=== PATIENT | male | born 1970 | race Caucasian/White ===

== ENCOUNTER 2024-08-01 08:10 | Emergency (ER) | payer BC, SELFPAY ==
[2024-08-01 08:16] VITALS: BP 137/87
--- NOTE | 2024-08-01 08:57 | ED.GENMED ---
History of Present Illness
<Linda Valladares PA-C - Last Filed: 08/01/24 10:42>
General
Chief Complaint: Swelling
Source: patient
Exam Limitations: none
Time Seen by Provider: 08/01/24 08:24
Nursing documentation reviewed up to this point in time: agreed with
History of Present Illness
History of Present Illness:
pt is a 54 y/o M with no sig pmh
1 week posterior prox calf thuy and knee pain
says he works in [employer] a lot
had some pain in his R knee and behind the knee 1 week ago but doesn't recall any injuries
he says he R knee 'blew up' and was pretty swollen and painful, and he had increasing pain in the back of his calf
so last week 5 days ago he went to his PCP who ordered outpatient US due to the entire R calf and into his foot/ankle being swollen
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
recommended MRI
pt has not had this done or ortho eval
he has been taking motrin for pain
is able to flex the knee, has some pain when he does that but most pain comes from dorsiflexion his foot, he feels pain inthe calf; als ohas problems walking down the steps
started turning a little pink int he posterior calf
no fever, chills, cp, sob
did recently drive to [place] and back > 8 horus
no h/o dvt previously
no color chagne to foot, numbness
he did compress it with oliver wrap last nigth and this morning foot and ankle are less swollen
Past History
<Linda Valladares PA-C - Last Filed: 08/01/24 10:42>
Past History
ED Past Medical History: None
ED Past Surgical History: None
Social History
Tobacco: Non-smoker
Alcohol: None
Personal:
Living: with family
Employment: Employed
Review of Systems
<JOSETTE Hurt Last Filed: 08/01/24 10:42>
Review of Systems
Allergies reviewed?: Yes
All Other Systems: Not applicable
Phy Exam
<JOSETTE Hurt Last Filed: 08/01/24 10:42>
Physical Exam
Physical Exam:
GENERAL: Alert , in no apparent distress
EYE: pupils equal and reactive
NECK: Supple
ENT: o/p clr, mmm.
CARDIAC: Regular rate and rhythm .
LUNGS: Clear breath sounds bilaterally, no acute respiratory distress, no wheezes/rales/rhonchi
ABDOMEN: Soft, without focal tenderness, no r/g, no cvat, normal bowel sounds
NEUROLOGICAL: Alert and oriented, no focal neuro deficits
SKIN: Warm and dry, skin intact.
NO SIGNIFICANT ERYTHEMA TO R LOWER LEG; PERFUSED; NO RASH, NO BRUISING
PERHAPS VERY FAINT PINK POSTERIOR R KNEE AND PROX CALF; NO CORD
MUSCULOSKELETAL: R LOWER LEG MILDLY EDEMATOUS
KNEE WITH MILD TO MOD EFFUSION
ABLE TO FLEX 45 DEGREES
STABLE LIGAMENTS
POSTERIOR CALF SLIGHTLY TENDER, GASTROGNEMIUS MUSCLE REGION
ABLE TO DORSIFLEX FOOT BUT HAS SOME PAIN
NORMAL PULSES
DOPPLERED TO BE SURE
MILD EDEMA DIFFUSE LOWER LEG TO ANKLE, SLIGHTLY PITTING AT ANKLE
PSYCH: Normal and appropriate interaction.
Scores
<JOSETTE Hurt Last Filed: 08/01/24 10:42>
Heart Failure Risk
Heart Failure Risk Score: Not Applicable
Course
<JOSETTE Hurt Last Filed: 08/01/24 10:42>
Orders/Labs/Results
Orders:
Orders
06/10/25 08:45
Venous Doppler Lwr Ext Rt [US Periph Venous LOWER Ext RT] Urgent
Comment:
Reason For Exam: R prox med calf swellig/red ? hematoma vs dvt/cyst
08/01/24 08:46
Knee, Right 4 or More Views [CR Knee- Right 4 Or More View*] Urgent
Comment:
Reason For Exam: right knee pain
Vital Signs
Initial and Last Documented VS:
Initial Vital Signs
Temp Pulse Resp BP Pulse Ox
37.2 C 100 16 137/87 100
08/01/24 08:16 08/01/24 08:16 08/01/24 08:16 08/01/24 08:16 08/01/24 08:16
Last Documented Vital Signs
Temp Pulse Resp BP Pulse Ox
37.2 C 96 16 132/83 100
08/01/24 08:16 08/01/24 10:12 08/01/24 10:12 08/01/24 10:12 08/01/24 08:16
<Gelacio Dominguez, DO - Last Filed: 08/01/24 10:22>
Orders/Labs/Results
Orders:
Orders
08/01/24 08:45
Venous Doppler Lwr Ext Rt [US Periph Venous LOWER Ext RT] Urgent
Comment:
Reason For Exam: R prox med calf swellig/red ? hematoma vs dvt/cyst
08/01/24 08:46
Knee, Right 4 or More Views [CR Knee- Right 4 Or More View*] Urgent
Comment:
Reason For Exam: right knee pain
Vital Signs
Initial and Last Documented VS:
Initial Vital Signs
Temp Pulse Resp BP Pulse Ox
37.2 C 100 16 137/87 100
08/01/24 08:16 08/01/24 08:16 08/01/24 08:16 08/01/24 08:16 08/01/24 08:16
Last Documented Vital Signs
Temp Pulse Resp BP Pulse Ox
37.2 C 96 16 132/83 100
08/01/24 08:16 08/01/24 10:12 08/01/24 10:12 08/01/24 10:12 08/01/24 08:16
<Linda Valladares PA-C - Last Filed: 08/01/24 10:42>
MDM/Problems Addressed
Differential Diagnosis Includes:
HEMATOMA, INFECTION, DVT, SUPERFICIAL THROMBOPHLEBITIS, GASTROCNEMIUS TEAR, BALDWIN'S CYST
MDM/Problems Addressed:
54-year-old male, very active, kneels frequently, had some pain in the posterior knee and calf region last week but does not recall specific injury. It was becoming more painful to ambulate and dorsiflex of foot. He went to his family doctor when
he noticed the calf is swollen which would go down into his ankle. He had an ultrasound which showed a very small Baldwin's cyst popliteal fossa as well as possibly a hematoma or small area of fluid collection in the medial calf. He was told he
should probably have an MRI. Patient continued to walk on the leg without any crutches or bracing. He has continued to have pain and swelling, it will wax and wane. He is taken ibuprofen. On exam the patient has a mild to moderate suprapatellar
joint effusion but can still flex the knee 45 degrees, joint is stable, there is no knee tenderness or warmth. The posterior fossa area is slightly full and it is very trace pink color initially on exam however that seems to have faded. The
proximal calf and the gastrinomas muscle was tender without any palpable cord. He had normal pulse. He can dorsiflex the foot with some discomfort. Ultrasound now shows the Baldwin's cyst has grown, and there is a comment on a fluid collection that
looks consistent with a hematoma. This all makes sense to be a traumatic cause for his symptoms. Will compress it with Oliver wrap, give crutches and recommend Ortho follow-up. Continue NSAIDs.
<Linda Valladares PA-C - Last Filed: 08/01/24 10:42>
*Critical Care Note
Total Time (30-74mins, 75-104mins- exclusive of procedures): Not Applicable
ED Attending Note
<Linda Valladares PA-C - Last Filed: 08/01/24 10:42>
-
Portions of this chart may have been created with voice recognition software.� Occasional wrong word or��sound alike� substitutions may have occurred due to the inherent limitations of voice recognition software.
<Gelacio Dominguez DO - Last Filed: 08/01/24 10:22>
ED Attending Note
Patient seen and examined by attending physician: Yes
I performed the substantive portion of visit, reviewed & personally made and approve the management plan that is documented in note by myself or HARIS.: Yes
ED Attending Note:
I have seen and evaluated the patient with a amco-yu-ntgi encounter. I have spoken to the advance practicer provider and involved in the medical history, the physical exam, medical decision making.
Evaluation and management service: agree unless noted differently below.
Results interpretation: agree unless noted differently below.
Focused HPI: 54-year-old male presenting with worsening posterior right knee pain and now with worsening right leg swelling. He does not remember any specific injury but does acknowledge that he is always moving 'at 100 mph'. He was seen recently
and diagnosed with a Baldwin's cyst
Physical exam: Mild dependent edema noted to right leg. No skin changes noted. Distal extremity neurovascular intact. Mild right knee effusion
Medical Decision Making: Ultrasound shows enlarging Baldwin's cyst. There is now a fluid collection in the calf consistent with likely hematoma. I discussed with patient this is likely related to some sort of injury that he had and discussed
compression and crutches and follow-up with orthopedics
Discharge Plan
Departure
Patient Disposition: Home (Routine Discharge)
Date of Disposition: 08/01/24
Time of Disposition: 10:33
Patient with high blood pressure during this ER visit?: No
Condition: Fair
Covid-19: Not Applicable
Discharge Problem:
Hematoma of right lower extremity, Baldwin's cyst of knee, Effusion of knee
Instructions: Baldwin's Cyst (DC), Hematoma
Prescriptions:
No Action
sulfamethoxazole-trimethoprim 1 TABLET tablet
1 tab PO BID Qty: 12 0RF
Referrals:
Braden Bang MD [Active, Orthopedics] - Follow up in 5-7 days
Janiya Laurent DO [Family Provider, Family Practice]
Activity Restrictions/Additional Instructions:
YOUR ULTRASOUND SHOWED A BALDWIN'S CYST 5 CM X 2 CM X 1 CM IN THE BACK OF YOUR KNEE, WELL WHAT LOOKS LIKE A 5 CM HEMATOMA (COMPLEX FLUID COLLECTION) IN THE MEDIAL CALF
YOU PROBABLY INJURED YOUR MUSCLES IN THE BACK OF YOUR CALF WHICH CAUSED THIS SWELLING AND PAIN
REST BY USING CRTUCHES, AVOID WEIGHT BEARING FOR 3-5 DAYS
WEAR AN OLIVER WRAP DURING THE DAY, REMOVE AT NIGHT
ELEVATE HIGHER THAN YOUR HEART WHEN YOU CAN
CONTINUE IBUPROFEN 600 MG 3 TIMES A DAY FOR 5 DAYS
CALL ORTHO FOR A FOLLOW UP
RETURN FOR: SEVERE PAIN/SWELLING, FEVER, WORSE REDNESS, NUMBNESS/COLOR CHANGE TO FOOT, WEAKNESS OR ANY CONCERNS
Interventions
Interventions:
*Risk Screen - Suicide Last Done: 08/01/24 08:16
*Neglect/Abuse Screening Last Done: 08/01/24 08:16
*ED COVID-19 Vaccine History Last Done: 08/01/24 08:23
ED- Cardiac Assessment Last Done: 08/01/24 08:31
ED- Pulmonary Assessment Last Done: 08/01/24 08:31
ED-Skin Assessment Last Done: 08/01/24 08:31
Discharge Date and Time
Print Language: ARGENT[place]
[2024-08-01 10:12] VITALS: BP 132/83
== END 2024-08-01 10:35 | disposition home or self-care (01) ==
LOC: EMR 08:10
PROVIDERS: EMERGENCY PHYSICIAN Student in an Organized Health Care Education/Training Program; FAMILY PHYSICIAN Family Medicine
DX: S80.11XA Contusion of right lower leg, initial encounter (principal); M71.21 Synovial cyst of popliteal space [Baker], right knee; M25.461 Effusion, right knee; X58.XXXA Exposure to other specified factors, initial encounter
CPT/HCPCS: 99284; 73564; 93971